=== PATIENT | female | born 1970 | race American Indian/Alaskan Native ===

== ENCOUNTER 2017-08-07 13:19 | Outpatient (CLI) | payer BC ==
--- NOTE | 2017-08-07 15:53 | Mammography Report ---
BILATERAL DIGITAL DIAGNOSTIC MAMMOGRAM with CAD and RIGHT BREAST ULTRASOUND: 08/07/17 CLINICAL: Right breast lump. COMPARISON:None available. Her last mammogram was at [facility]. FINDINGS: The breasts are heterogeneously dense, which may obscure small masses. Bilateral asymmetries demonstrate satisfactory effacement with spot compression.No mass, suspicious architectural distortion or suspicious calcifications . No mammographic finding as a right upper outer palpable marker. Ultrasound of the upper outer right breast was performed and demonstrated no mass, cyst or shadowing. A lymph node with central fat a benign morphology is identified at 10 o'clock 11 cm from the nipple and appears to correlate with the lump that she is feeling. It measures 1.5 x 2.2 x 0.8 cm. A second lymph node at 9 o'clock 9 cm from the nipple has central fat and measures 8 x 4 mm. IMPRESSION: Benign right upper outer intramammary lymph nodes and no suspicious finding. BI-RADS CATEGORY: 2 -- Benign RECOMMENDATION: Clinical follow-up and routine mammographic screening in one year. We will attempt to obtain a comparison mammogram and will issue an addended report afterward. ACR BI-RADS MAMMOGRAPHIC CODES: 0 = Needs additional imaging evaluation; 1 = Negative; 2 = Benign; 3 = Probably benign; 4 = Suspicious; 5 = Malignant; 6 = Known biopsy-proven malignancy COMMENT: 1. Dense breast tissue, i.e., adenosis, fibrocystic changes, etc., may obscure an underlying neoplasm. 2. Approximately 10% of cancers are not detected with mammography. 3. A negative mammography report should not delay biopsy if a clinically suspicious mass is present. COMMENT: Patient follow-up letters are generated by our anchor.travel application.
== END 2017-08-07 13:20 | disposition home or self-care (01) ==
LOC: SPVWC 13:19
PROVIDERS: ATTEND Family Medicine
DX: N63.10 Unspecified lump in the right breast, unspecified quadrant (principal); R92.8 Other abnormal and inconclusive findings on diagnostic imaging of breast; I10 Essential (primary) hypertension; E78.00 Pure hypercholesterolemia, unspecified; E03.9 Hypothyroidism, unspecified
CPT/HCPCS: 77066